=== PATIENT | male | born 1990 ===

== ENCOUNTER → 2024-07-28 | Day surgery (SDC) | payer OTHER ==
[~2024-07-28] MED LIST: DIPHENHYDRAMINE HCL 50 MG/ML VIAL 1ML IV ONE; MIDAZOLAM HCL 2 MG/2 ML VIAL IV ONE; fentaNYL CITRATE 50 MCG/ML AMPUL IV PUSH ONE
== END | disposition home or self-care (01) ==
LOC: ADM 07-24 13:45 → AMB-ENDOS 05:35
PROVIDERS: ATTEND Colon & Rectal Surgery
DX: K62.5 Hemorrhage of anus and rectum (principal)